=== PATIENT | female | born 1930 | race Caucasian/White ===

== ENCOUNTER 2018-08-30 13:26 | Emergency (ER) | payer MEDICARE ==
--- OUTSIDE RECORDS SUMMARY | 2018-08-30 13:47 | XMS REPORT | Continuity of Care Document ---
:1930 External Reference #:[id number] Author Name Jeremiah Grewal M.D. Address [address] [place] [address] Care Team Providers Name Role Phone Jeremiah Cortes M.D. Primary Care Physician Unavailable Payers Type Date Identification Numbers Payment Provider Subscriber Policy Number: [id number] Medicare - [facility] [employer] PayID: [id number] [address] [place] [address] Policy Number: [id number] [facility] [employer] Marquita Parvez Group Number: [id number] [address] PayID: [id number] [place] [address] Advance Directives Description No Information Available Problems Date Description Provider Status Onset: Essential hypertension Active Onset: Pure hypercholesterolemia Active Onset: 01/21/2015 Epiretinal membrane Jeremiah Grewal M.D. Active Onset: 01/21/2015 Primary open angle glaucoma Jeremiah Grewal M.D. Active Onset: 01/21/2015 Pseudoexfoliation glaucoma Jeremiah Grewal M.D. Active Onset: 01/21/2015 Moderate Glaucoma Jeremiah Grewal M.D. Active Onset: 01/21/2015 Pseudophakia Jeremiah Grewal M.D. Active Onset: 07/29/2015 Pseudoexfoliation glaucoma Jeremiah Grewal M.D. Active Onset: 01/24/2017 Vitreous degeneration Jeremiah Grewal M.D. Active Family History Date Family Member(s) Problem(s) Comments Father No Current Problems Mother No Current Problems Social History Type Date Description Comments Sex Unknown Marital Status Legal Status: Occupation [employer] Work Status Part-Time Employment ETOH Use Denies alcohol use Tobacco Use Start: Unknown End: Unknown Patient is a former smoker Recreational Drug Use Denies Drug Use Smoking Status Reviewed: 08/25/18 Patient is a former smoker Allergies, Adverse Reactions, Alerts Date Description Reaction Status Severity Comments 01/20/2015 Aspirin Active 01/20/2015 Betadine Active 01/20/2015 Amoxicillin Active Medications Medication Date Status Form Strength Qnty SIG Indications Ordering Provider Latanoprost 03/19 Active Solution 0.005% 90day 1 drop Jeremiah Henning /2015 right eye Arleo, every M.D. night Combigan 01/20 Active Solution 0.2-0.5% 45ml 1 drop Jeremiah Henning right eye Arleo, twice a M.D. day Systane 01/20 Active Solution 0.4-0.3% one drop Jeremiah Henning 4x a week Tremayne Grewal Atenolol 00 Active Tablets 50mg Breiman, /0000 Jeremiah Casper Lovastatin 00 Active Tablets 20mg Breiman, /0000 Jeremiah Casper Hydrochlorothiazide 00 Active Tablets 25mg Breiman, /0000 Jeremiah Csaper Multi For Her 50+ 00/00 Active Capsules 1 by Unknown /0000 mouth every day Calcium 500+D High 00 Active Tablets 500-400mg Unknown Potency /0000 -Unit Metoprolol Succinate Active Tablets 50mg Take 1 Unknown ER /0000 ER 24HR Tablet By Mouth Every Day For For Blood Pressure Travatan Z 01/20 Hx Solution 0.004% 1 drop Jeremiah Henning /2014 s right eye Arleo, - at night M.D. 01/22 Immunizations Description No Information Available Vital Signs Description No Information Available Results Description No Information Available Procedures Date Code Description Status 01/24/2018 91406 Scanning Computerized Opthalmic Diagnostic Posterior Seg Completed Retina 01/24/2018 15692 Est Patient Comprehensive Exam Completed 07/26/2017 66046 Scanning Computerized Ophthalmic Diagnostic Imag Posterior Completed Seg On 07/26/2017 86952 Visual Field Exam Extended Completed 07/26/2017 93136 Est Patient Comprehensive Exam Completed 01/24/2017 14173 Scanning Computerized Opthalmic Diagnostic Posterior Seg Completed Retina 01/24/2017 47814 Est Patient Intermediate Exam Completed 07/27/2016 14131 Scanning Computerized Ophthalmic Diagnostic Imag Posterior Completed Seg On 07/27/2016 40541 Visual Field Exam Extended Completed 07/27/2016 73854 Est Patient Comprehensive Exam Completed 03/19/2016 76092 Est Patient Intermediate Exam Completed 07/29/2015 45589 Scanning Computerized Ophthalmic Diagnostic Imag Posterior Completed Seg On 07/29/2015 78433 Visual Field Exam Extended Completed 07/29/2015 61913 Est Patient Comprehensive Exam Completed 01/21/2015 92053 Est Patient Intermediate Exam Completed 01/21/2015 36233 Gonioscopy Completed 01/21/2015 91955 Scanning Computerized Opthalmic Diagnostic Posterior Seg Completed Retina 07/16/2014 39727 Fundus Photography With Interpretation And Report Completed 07/16/2014 57565 Visual Field Exam Extended Completed 07/16/2014 04699 Est Patient Comprehensive Exam Completed 01/15/2014 68646 Est Patient Intermediate Exam Completed 08/17/2013 23653 Visual Field Exam Extended Completed 07/13/2013 52381 Est Patient Intermediate Exam Completed 01/23/2013 70078 Remove Secondary Cataract, Laser (Yag) Completed 01/09/2013 99342 Scanning Computerized Opthalmic Diagnostic Posterior Seg Completed Retina 01/09/2013 55659 Est Patient Comprehensive Exam Completed 07/18/2012 43709 Scanning Computerized Opthalmic Diagnostic Posterior Seg Completed Retina 07/18/2012 28348 Visual Field Exam Extended Completed 07/18/2012 20023 Est Patient Intermediate Exam Completed 05/14/2012 13408 Exchange Intraocular Lens Completed 05/08/2012 98014 Ophthalmic Biometry Completed Encounters Type Date Location Provider Dx Diagnosis Office Visit 08/08/2012 Kacie Smith 365.11 Primary Open Angle 12:30p , oswaldo Kellogg O.D. Glaucoma 365.72 Moderate Glaucoma Office Visit 05/06/2012 11:00a Jatinder Smith, 365.9 Glaucoma Unspec oswaldo KIRKPATRICK M.D. 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 If you are a smoker, we strongly recommend that you quit.If you are not a smoker, we strongly recommend that you do not start. Your Glaucoma is stable at this time in your right eye. Your eye pressure is within an acceptable range, and your testing does not show any further deterioration at this time. Please continue your treatment as directed and keep follow up appointments.Follow up:6 Month Follow Up DFE/IOP OCT MAC You can expect to have your eyes dilated at your next visit. If Dr. Grewal orders any additional testing, it may require extra time. We recommend that you bring sunglasses, as dilation drops often make you light sensitive until they wear off. We always recommend you bring someone to drive you home if you are uncomfortable driving with your eyes dilated. If you have any questions before your next visit, feel free to call our office at .H35.787 Puckering of macula, bilateralComments:A Macular Pucker is a wrinkling of the retina tissue. It can cause distortion in your vision. Pleasecall the office if you notice a decrease or new distortion in your vision before then.Follow up:6 Month Follow Up OCT MACZ96.1 Presence of intraocular lensComments:The artificial lens implants in both eyes appear to be stable at this time.H43.813 Vitreous degeneration, bilateralComments:You have a Posterior Vitreous Detachment. If you have any changes in your floaters or flashing lights, please contact this office.
--- NOTE | 2018-08-30 14:08 | ED ---
Shortness of Breath - HPI Summary HPI Summary: Pt is an 87 y/o F presenting to the ED with shortness of breath onset 08/25/18. She usually does not have trouble breathing, she has been able to catch her breath eventually, but today is the first day she really could not catch her breath. The pt reports mild productive cough. The pt denies LE edema, chest pain , hx anxiety, PE, heart, or lung problems. - History of Current Complaint Chief Complaint: EDShortnessOfBreath Time Seen by Provider: 08/30/18 13:44 Hx Obtained From: Patient Onset/Duration: Sudden Onset, Lasting Days, Still Present Timing: Constant Current Severity: Mild Dyspnea At: Rest Aggrevating Factors: Movement Alleviating Factors: Nothing Associated Signs & Symptoms: Cough (Productive) - Allergy/Home Medications Allergies/Adverse Reactions: Allergies Allergy/AdvReac Type Severity Reaction Status Date / Time amoxicillin Allergy Swelling Verified 08/30/18 13:38 Of Face,Lips,& Throat aspirin Allergy Twitching Verified 08/30/18 13:38 PMH/Surg Hx/FS Hx/Imm Hx Previously Healthy: No Endocrine/Hematology History: Denies: Hx Diabetes, Hx Thyroid Disease Cardiovascular History: Reports: Hx Hypercholesterolemia, Hx Hypertension Denies: Other Cardiovascular Problems/Disorders Respiratory History: Denies: Hx Asthma, Hx Chronic Obstructive Pulmonary Disease (COPD) GI History: Denies: Hx Ulcer Musculoskeletal History: Reports: Hx Arthritis - JUST NORMAL 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, Other Musculoskeletal History - HX OF SCIATIC NERVE PAIN-RIGHT Sensory History: Reports: Hx Cataracts, Hx Contacts or Glasses - GLASSES, Hx Glaucoma - LIGHT Denies: Hx Hearing Aid Opthamlomology History: Reports: Hx Cataracts, Hx Contacts or Glasses - GLASSES , Hx Glaucoma - LIGHT - Cancer History Hx Chemotherapy: No - Surgical History Surgery Procedure, Year, and Place: hysterectomy Hx Anesthesia Reactions: No - Immunization History Immunizations Up to Date: Yes Infectious Disease History: No Infectious Disease History: Reports: Hx Shingles - 2010 Denies: Hx Hepatitis, Hx Human Immunodeficiency Virus (HIV), History Other Infectious Disease, Traveled Outside the [place] in Last 30 Days - Family History Known Family History: Negative: Cardiac Disease, Renal Disease - Social History Alcohol Use: None Substance Use Type: Reports: None Smoking Status (MU): Never Smoked Tobacco Type: Cigarettes Have You Smoked in the Last Year: No Review of Systems Negative: Fever Negative: Chest Pain Positive: Shortness Of Breath, Cough Negative: Edema All Other Systems Reviewed And Are Negative: Yes Physical Exam - Summary Physical Exam Summary: Appearance: Well appearing, no pain distress Skin: warm, dry, reflects adequate perfusion Head/face: normal Eyes: EOMI, TROY ENT: normal Neck: supple, non-tender Respiratory: CTA, breath sounds present Cardiovascular: RRR, pulses symmetrical Abdomen: non-tender, soft Musculoskeletal: normal, strength/ROM intact Neuro: normal, sensory motor intact, A&Ox3 Triage Information Reviewed: Yes Vital Signs On Initial Exam: Initial Vitals Temp Pulse Resp BP Pulse Ox 98.2 F 77 16 186/96 98 08/30/18 13:34 08/30/18 13:34 08/30/18 13:34 08/30/18 13:34 08/30/18 13:34 Vital Signs Reviewed: Yes Diagnostics - Vital Signs Vital Signs Temp Pulse Resp BP Pulse Ox 08/30/18 13:34 98.2 F 77 16 186/96 98 - Laboratory Result Diagrams: 08/30/18 14:16 08/30/18 14:16 Lab Statement: Any lab studies that have been ordered have been reviewed, and results considered in the medical decision making process. - Radiology Chest x-ray Radiology Interpretation Completed By: Radiologist Summary of Radiographic Findings: No active cardiopulmonary disease. ED physician has reviewed this report. - CT Chest/thorax CTA CT Interpretation Completed By: Radiologist Summary of CT Findings: 1. NO PULMONARY ARTERIAL FILLING DEFECT TO SUGGEST PULMONARY EMBOLISM. 2. ATHEROSCLEROSIS. 3. 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 4. MULTIPLE PULMONARY PARENCHYMAL NODULES MEASURING UP TO 0.4 CM IN SIZE. THE. RECOMMENDATIONS FOR FOLLOWUP AND MANAGEMENT OF INCIDENTALLY DETECTED MULTIPLE PULMONARY. NODULES LESS THAN 6 MM IN SIZE, IN A PATIENT WITHOUT A HISTORY OF MALIGNANCY, INCLUDE NO. FOLLOWUP FOR A LOW-RISK PATIENT OR OPTIONAL FOLLOWUP CT IN 12 MONTHS FOR A HIGH RISK. PATIENT. - EKG 1436 Cardiac Rate: NL - 68bpm EKG Rhythm: Sinus Rhythm ST Segment: Normal Ectopy: None Course/Dx - Course Course Of Treatment: The pt is an 87 y/o F presenting to the ED with shortness of breath onset 08/25/18. She has no hx of heart, lung, or anxiety problems, specifically PE. She reports mild productive cough, and denies LE edema or chest pain. Bloodwork/UA obtained. An EKG reveals NSR 68bpm. A chest x-ray reveals no active cardiopulmonary disease. A chest/thorax CTA reveals negative pulmonary arterial filling defect suggesting pulmonary embolism, positive atherosclerosis, positive ectasia of ascending thoracic aorta up to 3.4 cm, and positive multiple pulmonary parenchymal nodules up to 0.4cm in size. Patient is given chlonidine. Bloodwork is obtained. Patient will be discharged and is instructed to follow up with their PCP regarding their symptoms today. - Diagnoses Differential Diagnosis/HQI/PQRI: Positive: Bronchitis, CHF, NV, Pneumonia, Pulmonary Embolism, Pulmonary Edema Provider Diagnoses: Dyspnea Discharge - Sign-Out/Discharge Documenting (check all that apply): Patient Departure - discharge - Discharge Plan Condition: Stable Disposition: HOME Patient Education Materials: Dyspnea (ED) Referrals: Jeremiah Cortes MD [Primary Care Provider] - 2 Days Additional Instructions: RETURN TO THE EMERGENCY DEPARTMENT FOR CHANGING OR WORSENING SYMPTOMS. FOLLOW UP WITH YOUR PRIMARY CARE PHYSICIAN REGARDING YOUR VISIT TODAY. - Billing Disposition and Condition Condition: STABLE Disposition: Home - Attestation Statements Document Initiated by Wilsonibe: Yes Documenting Scribe: Deepthi León Provider For Whom Kamilah is Documenting (Include Credential): Jerardo Anthony MD. Scribe Attestation: Deepthi Ceran scribed for Jerardo Anthony MD. on 08/30/18 at 1834. Scribe Documentation Reviewed: Yes Provider Attestation: The documentation as recorded by the Deepthi reno accurately reflects the service I personally performed and the decisions made by Jerardo cohn MD. Status of Scribe Document: Viewed
[2018-08-30 14:23] LABS: ABS Basophils 0 10^3/ul (0-0.2); ABS Eosinophils 0.1 10^3/ul (0-0.6); ABS Lymphocytes 2.6 10^3/ul (1.0-4.8); ABS Monocytes 0.6 10^3/ul (0-0.8); ABS Neutrophils 3.6 10^3/ul (1.5-7.7); ABS Nucleated RBC 0 10^3/ul; Eosinophil % 1.7 %; Hematocrit 35 % (35-47); Hemoglobin 11.9 g/dl (12.0-16.0); Mean Corpuscular HGB Conc 34 g/dl (31-36); Mean Corpuscular Hemoglobin 30 pg (27-31); Mean Corpuscular Volume 88 fL (80-97); Mean Platelet Volume 7.8 fL (7.4-10.4); Nucleated Red Blood Cells % 0; Platelet Count 230 10^3/ul (150-450); Red Cell Distribution Width 13 % (10.5-15); White Blood Count 6.9 10^3/ul (3.5-10.8)
[2018-08-30 14:40] LABS: Albumin 3.5 g/dL (3.2-5.2); Albumin/Globulin Ratio 0.9 (1-3); BUN/Creatinine Ratio 28.4 (8-20); Calcium 9.4 mg/dL (8.6-10.3); EGFR Non-African American 51.1 (>60); Globulin 3.7 g/dL (2-4); Potassium 3.9 mmol/L (3.5-5.0); Total Bilirubin 0.4 mg/dL (0.2-1.0); Total Protein 7.2 g/dL (6.4-8.9)
[2018-08-30] MEDS ORDERED: Iodixanol* (CONTRAST) 320 MG/ML 100 ML SDV IV ONE (14:50)
[2018-08-30 14:59] LABS: Activated Partial Thrombo Time 28.9 seconds (26.0-36.3); INR 0.97 (0.77-1.02)
[2018-08-30] MEDS ORDERED: cloNIDine TAB* 0.1 MG PO ONE (16:24)
[2018-08-30] MEDS ORDERED: cloNIDine TAB* 0.1 MG ONE (16:25)
[2018-08-30 18:38] VITALS: BP 118/73
== END 2018-08-30 18:39 | disposition home or self-care (01) ==
LOC: ED 13:26
DX: R06.00 Dyspnea, unspecified (principal); R05 Cough; Z88.0 Allergy status to penicillin; R06.02 Shortness of breath
CPT/HCPCS: 36415; 71045; 71275; 80053; 83880; 84436; 84484; 85025; 85379; 85610; 85730; 93005; 99283; A9270-GY; Q9967